=== PATIENT | male | born 1955 | race Caucasian/White ===

== ENCOUNTER 2017-07-26 06:20 | Day surgery (SDC) | payer OTHER ==
[~2017-07-26 06:20] MED LIST: Lactated Ringers 1,000 ML IV SCH; ceFAZolin 2 GM in Premix Bag 1 BAG IV ONE
--- NOTE | 2017-07-26 07:15 | PCM.PREANE ---
Preanesthetic Assessment - Anesthesia/Transfusion/Family Hx Anesthesia History: Prior Anesthesia Without Reaction Family History of Anesthesia Reaction: No Transfusion History: No Prior Transfusion(s) Intubation History: Unknown - Review of Systems General: No Symptoms Pulmonary: No Symptoms Cardiovascular: No Symptoms Gastrointestinal: No Symptoms Neurological: No Symptoms Other: Reports: None - Physical Assessment O2 Sat by Pulse Oximetry: 96 Respiratory Rate: 16 Vital Signs: Last Vital Signs Temp 36.9 C 07/26/17 06:31 Pulse 72 07/26/17 06:31 Resp 16 07/26/17 06:31 BP 144/79 H 07/26/17 06:31 Pulse Ox 96 07/26/17 06:31 Height: 1.85 m Weight: 101.151 kg ASA Class: 2 Mental Status: Alert & Oriented x3 Airway Class: Mallampati = 2 Dentition: Reports: Broken Tooth/Teeth (few), Missing Tooth/Teeth (multiple) Thyro-Mental Finger Breadths: 3 Mouth Opening Finger Breadths: 2 ROM/Head Extension: Full Lungs: Clear to Auscultation, Normal Respiratory Effort Cardiovascular: Regular Rate, Regular Rhythm - Allergies Allergies/Adverse Reactions: Allergies Allergy/AdvReac Type Severity Reaction Status Date / Time No Known Allergies Allergy Verified 07/21/17 11:29 - Blood Blood Available: No - Anesthesia Plan Pre-Op Medication Ordered: None - Acknowledgements Anesthesia Type Planned: General Anesthesia Pt an Appropriate Candidate for the Planned Anesthesia: Yes Alternatives and Risks of Anesthesia Discussed w Pt/Guardian: Yes Pt/Guardian Understands and Agrees with Anesthesia Plan: Yes PreAnesthesia Questionnaire - Past Health History Medical/Surgical History: Denies Medical/Surgical History HEENT History: Other HEENT History: wears glasses Gastrointestinal History: Reports: Colon Polyp, Hemorrhoids Genitourinary History: Reports: BPH Musculoskeletal History: Reports: Fracture Other Musculoskeletal History: hx of fx hand- no hardware Psychiatric History: Reports: Anxiety - Past Surgical History Head Surgeries/Procedures: Reports: None GI Surgical History: Reports: Colonoscopy Other GI Surgeries/Procedures: hx exc of rectal polyp - SUBSTANCE USE Smoking Status *Q: Never Smoker Tobacco Use Within Last Twelve Months: No Recreational Drug Use History: No - HOME MEDS Home Medications: Home Meds Aspirin [[place] Aspirin] 81 mg PO DAILY 03/26/16 [History] Fish Oil/DHA/EPA [Fish Oil 1,200 MG] 1,200 mg PO DAILY 07/21/17 [History] PARoxetine HCl [Paxil] 20 mg PO DAILY 07/21/17 [History] Sildenafil Citrate [Sildenafil] 40 mg PO ASDIRECTED PRN 07/21/17 [History] - CURRENT (IN HOUSE) MEDS Current Meds: Current Medications Lactated Ringer's (Ringers, Lactated) 1,000 mls @ 125 mls/hr IV ASDIRECTED MOISES Last Admin: 07/26/17 06:35 Dose: 125 mls/hr Discontinued Medications Cefazolin Sodium/Dextrose 2 gm (/ Premix) 50 mls @ 100 mls/hr IV ONETIME ONE Stop: 07/26/17 05:29
[2017-07-26] MEDS ORDERED: Bupivacaine 25%/EPINEPHrine/PF 30 ML ONE (07:25)
[2017-07-26] MEDS ORDERED: Octyl 2-Cyanoacrylate 1 Tube ONE (07:26)
[2017-07-26] MEDS ORDERED: Lidocaine 2% 5 ML SDV ONE (07:27)
[2017-07-26] MEDS ORDERED: Propofol 200 MG/20 ML SDV ONE (07:28)
[2017-07-26] MEDS ORDERED: Midazolam 1 MG/ML 2 ML SDV ONE (07:28)
[2017-07-26] MEDS ORDERED: fentaNYL 100 MCG/2 ML SDV ONE ×2 (07:28→07:29)
[2017-07-26] MEDS ORDERED: Ketorolac 30 MG/ML SDV ONE (07:33)
[2017-07-26] MEDS ORDERED: Neostigmine Methylsulfate 1 MG/ML 5 ML Syringe ONE (07:33)
[2017-07-26] MEDS ORDERED: Ondansetron 4 MG/2 ML SDV ONE (07:33)
[2017-07-26] MEDS ORDERED: Rocuronium 10 MG/ML 10 ML Syringe ONE (07:33)
[2017-07-26] MEDS ORDERED: Glycopyrrolate 0.2 MG/ML SDV ONE (07:33)
[2017-07-26] MEDS ORDERED: ceFAZolin/Dextrose,Iso-Osmotic 2 GM/50 ML Duplex Bag IV ONE (07:34)
[2017-07-26] MEDS ORDERED: Acetaminophen/oxyCODONE 325-7.5 MG Tab PO ONE (08:09)
--- NOTE | 2017-07-26 08:54 | PCM.OPNOTE ---
- General Post-Op/Procedure Note Date of Surgery/Procedure: 07/26/17 Operative Procedure(s): incarcerated umb hernia repair, no mesh used Findings: hernia is 10 mm, neck is 6 mm, incarcerated with omentum, no mesh used in repair ; [id number] Pre Op Diagnosis: incarcerated umb hernia Post-Op Diagnosis: Same Anesthesia Technique: General ET Tube Primary Surgeon: Surya Mayberry Complications: None Condition: Good
[2017-07-26] MEDS ORDERED: fentaNYL 100 MCG/2 ML SDV IVPUSH PRN (09:16)
--- NOTE | 2017-07-26 09:33 | PCM.POSTAN ---
POST ANESTHESIA ASSESSMENT - MENTAL STATUS Mental Status: Alert, Oriented - RESPIRATORY Respiratory Status: Respiratory Rate WNL, Airway Patent, O2 Saturation Stable - CARDIOVASCULAR CV Status: Pulse Rate WNL, Blood Pressure Stable - GASTROINTESTINAL GI Status: No Symptoms - PAIN Pain Score: 2 - POST OP HYDRATION Hydration Status: Adequate & Stable - OBSERVATIONS Free Text/Narrative:: no anesthesia problems
[2017-07-26 10:29] VITALS: BP 117/73
--- NOTE | 2017-07-27 10:34 | OR ---
SURGEON: Surya Mayberry MD DATE OF PROCEDURE: 07/26/2017 PREOPERATIVE DIAGNOSIS: Incarcerated umbilical hernia. POSTOPERATIVE DIAGNOSIS: Incarcerated umbilical hernia. PROCEDURE PERFORMED: Open repair of above. No mesh used. FINDINGS: 1. Hernia is big, around 1 cm. 2. The hernia neck is very small, cannot pass my finger, neck is about 6-mm. Repair, primary, no mesh used. COMPLICATIONS: None. PROCEDURE: The patient was brought to the operating room and placed in the supine position and upon the induction of general endotracheal anesthesia, the patient's abdomen was prepped and draped in sterile fashion. After assessment of appropriate landmarks, a surgical incision was made periumbilically which was then carefully dissected with blunt and sharp dissection surrounding the umbilical stalk. Hernia was entered and the fascial defect was noted, and the excess hernia sac was amputated. The facial edge was noted to be intact and the fascia was then grasped up with Allis clamps and then using 2-0 Ethibond, simple stitches were placed. After repair was finished and exploring the neighborhood, I failed to find any more hernia defect. This was followed with extensive irrigation and good hemostasis was achieved by using electrocautery. The umbilicus was then stitched down to recreate the umbilicus, and the skin was closed with 3-0 Vicryl subcutaneously followed with Dermabond approximating the skin. The patient was then awakened and extubated and transferred to the recovery room in good stable condition. Dr. Mayberry was present through the whole procedure. At the conclusion of the surgery, before closing the abdominal wound, instrument count and sponge count were done and were correct. Just before surgery, a timeout was called. The patient was identified and procedure identified and procedure started. NELIA / VIPIN /[id number]
== END 2017-07-26 11:22 | disposition home or self-care (01) ==
LOC: MW.SDS 06:20
PROVIDERS: ATTEND Surgery
DX: K42.0 Umbilical hernia with obstruction, without gangrene (principal); F41.9 Anxiety disorder, unspecified; R73.03 Prediabetes; Z79.82 Long term (current) use of aspirin; Z79.899 Other long term (current) drug therapy; Z72.0 Tobacco use
CPT/HCPCS: 49587; A9270; J0690; J1885; J2250; J2405; J3010; J7120; 00830; J2704